=== PATIENT | female | born 1950 | race Caucasian/White ===

== ENCOUNTER 2016-11-25 01:55 | Inpatient (IN) | payer MEDICARE, MEDICAID ==
[2016-11-25] VITALS (12 sets, daily range): BP systolic 94–125; BP diastolic 51–67; PULSE 65–94; RESP 9–18; O2SAT 92–98
[~2016-11-25] VITALS: Ht 160 cm; Wt 81.8 kg
--- NOTE | 2016-11-25 03:00 | ED.REPORT ---
HPI-Abd Pain F 40 and Over Date of Service Nov 25, 2016 ED Provider: Dr. Booker Pt is a 66 year old female presenting to the ED complaining of lower right abd pain onset this morning, intensifying throughout the day. She denies hx of abd surgery. She reports that her last bowel movement was this morning. She denies other symptoms at this time. Nursing Notes Stated Complaint: RT SIDE PAIN Chief Complaint: Female Abdominal Pain Nursing Notes Reviewed: Yes Allergies: Coded Allergies: mercury (elemental) (Verified Allergy, Severe, removes skin, 11/25/16) General Time Seen by MD: 03:00 Chief Complaint Abdominal pain Hx Obtained From: Patient Arrived By: Walk-in Sudden in Onset?: Yes Onset Occurred: Yesterday Symptom Duration: Since onset Progression since Onset: Constant, Gradually worsening Location: : RLQ Quality: Painful Severity: Current: Moderate Severity: Maximum: Severe Recent Healthcare: No recent doctor visit, No recent hospitalization Similar Sx Previous: No Past Medical History Past Medical History Healthy Past Surgical History denies hx of abd surgery Denies: Appendectomy Smoking History Never Smoker Social History Alcohol Use: Denies alcohol use Ambulatory Status Independent Review of Systems Respiratory: Denies: Shortness of breath GI: Reports: Abdominal pain, Denies: Nausea, Vomiting Complete sys rev & neg: except as marked. Physical Exam Vital Signs Vital Signs (First) Date Time Temp Pulse Resp B/P Pulse Ox O2 Delivery O2 Flow Rate FiO2 11/25/16 02:01 37.4 66 16 106/66 97 Room Air Initial VS: Reviewed Head / Eyes: Atraumatic, Normocephalic, PERRL ENT: Mucous membranes moist, Conjunctiva normal, No scleral icterus Extremities: Vascular intact, Neuro intact, No swelling, No tenderness Skin: Warm, Dry, No cyanosis Neurologic: Alert, Oriented, Nonfocal Psychiatric: Mood/affect normal, Behavior normal, Normal thought content General/Constitutional: Awake, Alert, No acute distress, Well appearing, Well developed Respiratory / Chest: Breath sounds NL, Breath sounds = bilat, No respiratory distress, No rales, No rhonchi, No wheezing, No stridor Cardiovascular: Heart rate NL, Regular rhythm, Heart sounds NL, Peripheral circulation NL Abdomen: Atraumatic, No guarding, No rebound Rigid tender peritoneal. Hypoactive bowel sounds present. Interpretation & Diagnostics Lab Results Interpretation Result Diagram: 11/25/16 0300 11/25/16 0300 Test 11/25/16 03:00 11/25/16 03:39 11/25/16 04:10 White Blood Count 9.9th/mm3 (3.8-10.1) Red Blood Count 4.53mil/mm3 (3.90-5.20) Hemoglobin 13.1g/dL (12.0-15.6) Hematocrit 39.9% (35.0-46.0) Mean Corpuscular Volume 88.1fL (81-100) Mean Corpuscular Hemoglobin 28.9pg (27.0-35.0) Mean Corpuscular Hemoglobin Concent 32.8% (32.0-37.0) Red Cell Distribution Width 12.9% (12.3-15.4) Platelet Count 177bil/L (150-400) Neutrophils (%) (Auto) 77.2% (40-74) Lymphocytes (%) (Auto) 13.1% (14-46) Monocytes (%) (Auto) 9.0% (4-12) Eosinophils (%) (Auto) 0.3% (0-5) Basophils (%) (Auto) 0.2% (0-3) Prothrombin Time 10.0sec (8.1-12.5) Prothromb Time International Ratio 0.94ratio Sodium Level 137mEq/L (134-144) Potassium Level 4.1mEq/L (3.5-5.2) Chloride Level 98mEq/L (97-108) Carbon Dioxide Level 22mmol/L (18-29) Blood Urea Nitrogen 14mg/dL (8-27) Creatinine 0.64mg/dL (0.57-1.00) Estimat Glomerular Filtration Rate 133mL/min (>59) Glucose Level 112mg/dL (60-99) Calcium Level 8.7mg/dL (8.5-10.1) Magnesium Level 1.9mg/dL (1.6-2.6) Total Bilirubin 0.7mg/dL (0.0-1.2) Aspartate Amino Transf (AST/SGOT) 21U/L (0-50) Alanine Aminotransferase (ALT/SGPT) 15U/L (0-32) Alkaline Phosphatase 70U/L (25-165) Total Protein 6.7g/dL (6.4-8.4) Albumin 3.9g/dL (3.4-5.0) Lipase 10U/L (13-60) Lactic Acid Level 0.7mmol/L (0.4-2.0) Urine Color Dark yellow (YELLOW) Urine Appearance Clear (CLEAR,HAZY) Urine pH 6.5 (5.0-8.0) Urine Specific [place] 1.020 (1.003-1.035) Urine Protein Tracemg/dL (NEG,TRACE) Urine Glucose (UA) Negativemg/dL (NEGATIVE) Urine Ketones 40mg/dL (NEGATIVE) Urine Occult Blood Negative (NEGATIVE) Urine Nitrite Negative (NEGATIVE) Urine Bilirubin Negative (NEGATIVE) Urine Urobilinogen Normalmg/dL (NORMAL) Urine Leukocyte Esterase Trace (NEGATIVE) Urine RBC 0-2/hpf (0-2) Urine WBC 0-5/hpf (0-5) Urine Epithelial Cells Occasional/hpf (NONE-MOD) Urine Crystals None seen (NONE SEEN) Urine Bacteria None/hpf (NONE-FEW) Urine Hyaline Casts None/lpf (NONE) Urine Granular Casts None seen (NONE SEEN) Urine Waxy Casts None seen (NONE SEEN) Urine Red Blood Cell Casts None seen (NONE SEEN) Urine White Blood Cell Casts None seen (NONE SEEN) Urine Mucus Present (None Seen) Urine Trichomonas None seen (NONE SEEN) Urine Yeast None (NONE SEEN) Urine Culture Reflexed Indicated ECG Interpretation Time: 02:44 Interpreted by: ED physician Normal ECG Interpretation: Normal ECG w/ rate of... (65), Normal sinus rhythm CT Abd / Pelvis Interpretation CONCLUSION: Acute appendicitis. Wall thickening of terminal ileum is likely secondary to adjacent process. These findings were discussed with Dr. Booker at 11/25/2016 4:21:25 AM PDT. Study type: Abdominal CT IV contrast Interpretation / Wet Read by: Interpret - Radiologist Re-Eval/Medical Decision Med Decision/Clinical Course 66-year-old presents with abdominal pain and this settled in her right lower quadrant over the course of today. CT scan shows appendicitis. No evidence of perforation. Small appendicolith at the base. Admitted now to the surgical service for surgical management. Transported in stable condition. Zosyn, IV fluids, nothing by mouth status. Re-Evaluation/Progress : Time of Eval: 04:21 Patient Status: Condition improved Re-Evaluation/Progress Note: Discussed CT results and plan for admission. Pt understands and agrees. All pt questions addressed. Consultation : Referral / Consult Name: Chaka Bright MD Consulted With: Surgeon Call Returned at: 04:28 Powerhouse Laborer: Will see patient, Agrees with plan, Accepts admit Note: He will do surgery tomorrow. Counseled Regarding: Diagnosis, Lab results, Need for follow-up, When/why to return to ED Discharge & Departure Primary Impression: Appendicitis Appendicitis type: unspecified Qualified Code: K37 - Unspecified appendicitis Disposition: ADMITTED TO HOSPITAL Discharge Condition All VS Reviewed: Yes Condition: Improved Referrals: ROLY ROGERS MD (PCP) [place] Attestation Portions of this note were transcribed by Abril Mcguire. I, Dr. Booker personally performed the history, physical exam and medical decision-making; I reviewed and confirmed the accuracy of the information in the transcribed note. Signed by: Luis Aguilera, 11/25/2016 at 0429. copies to: ROLY ROGERS MD, Christopher W MD Nov 25, 2016 03:00 ABRIL MCGUIRE Nov 25, 2016 03:07
[2016-11-25] MEDS ORDERED: 0.9% Sodium Chloride 1,000 ML IV ONE (03:06)
[2016-11-25 03:07] LABS: BASOPHILS % (AUTO) 0.2 % (0-3); EOSINOPHILS % (AUTO) 0.3 % (0-5); Mean Corpuscular Hemoglobin 28.9 pg (27.0-35.0); Mean Corpuscular Volume 88.1 fL (81-100); NEUTROPHILS % (AUTO) 77.2 % (40-74); Platelet Count 177 bil/L (150-400)
[2016-11-25] MEDS ORDERED: HYDROmorphone 0.5 mg/0.5 mL iSecure Syringe IVPUSH PRN (03:10)
[2016-11-25] MEDS ORDERED: Pantoprazole 4 mg/mL 10 mL Inj IVPUSH ONE (03:10)
[2016-11-25] MEDS ORDERED: Ondansetron 2 mg/mL 2 mL Inj IVPUSH ONE (03:10)
[2016-11-25 03:25] LABS: INR 0.94 ratio
[2016-11-25 03:33] LABS: Magnesium 1.9 mg/dL (1.6-2.6)
[2016-11-25] MEDS ORDERED: Ondansetron 2 mg/mL 2 mL Inj IVPUSH PRN ×3 (04:30→17:15)
[2016-11-25] MEDS ORDERED: HYDROmorphone PCA 0.2 mg/mL 30 mL Inj IV PRN (04:30)
[2016-11-25] MEDS ORDERED: Piperacillin-Tazo 3.375 Gm Inj 3.375 GM in Dextrose 5% Minibag Plus 50 ML IV ONE (04:30)
[2016-11-25 04:31] LABS: APPEARANCE,URINE CLEAR (CLEAR,HAZY); COLOR,URINE DARK YELLOW (YELLOW); PH,URINE 6.5 (5.0-8.0)
[2016-11-25 04:32] LABS: OCCULT BLOOD,URINE NEGATIVE (NEGATIVE); UROBILINOGEN,URINE NORMAL (NORMAL)
[2016-11-25] MEDS: Lactated Ringer's 1,000 ML IV SCH ×2 (05:39→14:29)
--- NOTE | 2016-11-25 07:32 | NUR ---
Admit pt arrived to [facility] room 1023 at 0520. she was able to walk from the gurney to the bed without assistance. she is alert and oriented x3. a one time dose of zosyn was given. pt was started on a ROOM SERVICE WAITER dilaudid standard settings and taught how to use the ROOM SERVICE WAITER. she is resting comfortably at this time. admit complete.
--- NOTE | 2016-11-25 08:47 | DRSVH ---
PROCEDURE: CT ABDOMEN AND PELVIS WITH CONTRAST ([id number]) INDICATIONS: rlq pain TECHNIQUE: After the administration of intravenous contrast, 5 mm thick sections acquired from the diaphragm to the symphysis. 5 mm coronal and sagittal reformats were acquired. For radiation dose reduction, the following was used: automated exposure control, adjustment of mA and/or kV according to patient siz e. COMPARISON: None. FINDINGS: Image quality: Excellent. ABDOMEN: Lung bases: Lung bases are clear. Heart size is normal. Solid organs: Liver and spleen are normal in size and enhancement. Gallbladder is within normal marquez its. Biliary system is non dilated. Pancreas enhances normally. No adrenal nodules. Kidneys demon strate normal size and enhancement, without hydronephrosis. Peritoneum and bowel: An appendicolith is present. The appendix is distended and fluid-filled and de monstrates mild surrounding fat stranding. There is mild thickening of the adjacent terminal ileum. B owel loops demonstrate otherwise normal wall thickness and caliber. No pneumoperitoneum. Small amoun t of right paracolic free fluid. Nodes and vessels: No retroperitoneal or mesenteric adenopathy by size criteria. Aorta and inferior vena cava are normal in size. Miscellaneous: No ventral hernias. PELVIS: Genitourinary: Bladder wall thickness is normal. Miscellaneous: No inguinal hernias or adenopathy. Bones: No suspicious bony lesions. No vertebral body compression fractures. IMPRESSION: 1. Acute appendicitis. 2. Thickening of the terminal ileum, presumably reactive. 3. Small amount of free fluid in the right paracolic gutter. 4. Concordant with preliminary interpretation. Dictated by: Aime Whipple M.D. on 11/25/2016 at 8:43 Approved by: Aime Whipple M.D. on 11/25/2016 at 8:45
--- NOTE | 2016-11-25 12:59 | NUR ---
Student Nurse Note Pt experiencing general body pain, relieved by massage. Pt states she feels uneasy about walking around as she is weak and in pain. Has been using bedside commode with stand by assistance. Pt states she is very thirsty and wants water; informed that she is NPO for surgery but she will not become dehydrated as she's receiving IV fluids.
[2016-11-25] MEDS: Piperacillin-Tazo 3.375 Gm Inj 3.375 GM in Dextrose 5% Minibag Plus 50 ML IV SCH ×2 (13:24→16:30)
--- NOTE | 2016-11-25 14:40 | NUR ---
Social Work-initial assessment/readiness for discharge: Data:See initial assessment. Pt is a 66 y/o female who was admitted on 11/25/16 for acute appendicitis per H&P. Pt's insurance is [employer] and PCP is Jessi Pineda MD. EMR Reviewed. SW met with pt at bedside to discuss discharge planning, SW Role explained. Pt is alert and oriented x3. Pt resides at home with her SO in [place] where she remains independent with ADLs. Pt and SO are currently living in travel trailer while they build a house. Pt does not use any DME and drives. Pt has no HH or SNF history. Pt has no termite technician care or VA benefits. SW discussed DPOA/ advanced directive, pt states she has completed this, SW encourage a copy to be brought in. Pt has been up independent in her room. Pt to have surgery this afternoon. Pt's SO to provide transport home at discharge. SW provided plan and phone number on white board in room. No anticipated discharge needs. SW will continue to follow if needs arise. Assessment:Pt who is independent at baseline. Plan:Pt to discharge home when medically stable via POV. No anticipated discharge needs. SW will continue to follow if needs arise. HORTENSIA Mcnair Addendum: 11/25/16 at 1447 by LUNA SOLIS Amended: Links added.
--- NOTE | 2016-11-25 14:46 | HP ---
[address] [address] HISTORY AND PHYSICAL PATIENT: NOE AMADOR : 1950 MR#: [id number] ADMIT: 11/25/2016 JOB ID: [id number] CHIEF COMPLAINT: Abdominal pain. 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 She reports two days of abdominal pain. Forty-eight hours prior to presentation, she reported general malaise and a feeling of unwellness which progressed to diffuse abdominal pain later in the afternoon. She thought she was constipated and went to bed and when she woke up the next morning, 24 hours ago, her pain had localized to the right lower quadrant. It did not improve, and as the day went on, she thought that she could have appendicitis and, therefore, came to the emergency department. A CT scan was then performed which showed an appendicolith and a distended appendix which was fluid-filled with surrounding fat stranding and mild thickening of the adjacent terminal ileum, probably reactive. Her vital signs were normal and a white blood cell count was 9.9. PAST MEDICAL HISTORY: 1. Varicose veins. 2. Arthritis. PAST SURGICAL HISTORY: Varicose vein procedure at the age of 22. MEDICATIONS: She takes various oils for her arthritis. She denies use of fish oil or flaxseed oil. ALLERGIES: MERCURY. FAMILY HISTORY: Her grandmother had a metastatic cancer of unknown primary. 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 She lives with her male partner approximately 50 miles from the hospital. She does not smoke, she drinks 3-4 beers per week, and no recreational drug use. REVIEW OF SYSTEMS: Eleven point review of systems is positive for abdominal pain, and is otherwise negative. PHYSICAL EXAMINATION: Temperature 37.2, heart rate 76, blood pressure 94/60, respiratory rate of 16, saturation 98% on room air. General: Awake, alert, no acute distress. Head: Normocephalic. Neck: Supple. Cardiac: Regular rate and rhythm. No murmurs, rubs or gallops. Respiratory: Clear to auscultation bilaterally. Abdomen: Soft, flat, nondistended. She is very tender to mild palpation at McBurney point in the right lower quadrant. Mild tenderness in left lower quadrant, nontender in right upper quadrant and left upper quadrant. No rebound or guarding. Extremities: No gross abnormalities. Neurologic: No gross deficits. Psychiatric: Normal cognition and judgment. LABORATORIES: White blood cell count of 9.9, hematocrit of 39, platelets 177. Comprehensive metabolic panel is within normal limits. Lactate is 0.7. Labs are CT scan: Images are personally reviewed and show a distended fluid-filled appendix with surrounding fat stranding and appendicolith. This is consistent with acute appendicitis. Mild thickening of the terminal ileum, thought to be reactive. ASSESSMENT: A 66-year-old woman with acute appendicitis. PLAN: Laparoscopic appendectomy. We discussed the risks and benefits of surgery including infection, bleeding, injury to surrounding structures, and we also discussed the implications of perforation if it has occurred or is to occur. She understands all of this and elects to proceed. She will remain n.p.o. until the time of surgery. She received one dose of antibiotics in the emergency department, and this will be continued until the time of the operation. KAUSHAL
[2016-11-25] MEDS ORDERED: Rocuronium 10 mg/mL 5 mL Inj ONE (15:00)
[2016-11-25] MEDS ORDERED: fentaNYL-PF 50 mCg/mL 2 mL Inj ONE (15:00)
[2016-11-25] MEDS ORDERED: Phenylephrine/NS 100 mCg/mL 10 mL Syringe IVPUSH ONE (15:00)
[2016-11-25] MEDS ORDERED: Propofol 10,000 mCg/mL 20 mL Inj ONE (15:00)
[2016-11-25] MEDS ORDERED: Ondansetron 2 mg/mL 2 mL Inj ONE (15:00)
[2016-11-25] MEDS ORDERED: Succinylcholine Chloride 20 mg/mL 5 mL Inj ONE (15:00)
--- NOTE | 2016-11-25 15:31 | PCM.HPANE ---
Patient Data Surgeon Admitting Provider:Sophia Duffy MD Attending Provider:Sophia Duffy MD Primary Care Physician:Jessi Pineda MD Other Provider:Pedro Luis Reyes Anesthesia Reason for Visit Acute Appendicitis Ht/WT & BMI Height (Feet): 5 Height (Inches): 3.00 Weight (Kilograms): 81.82 Body Mass Index 0.00 Allergies Coded Allergies: mercury (elemental) (Verified Allergy, Severe, removes skin, 11/25/16) Past Anesthesia History Anesthesia History: Denies:: Abnormal Airway, Anesthesia Reactions, Difficult Intubation, Fam Anesthesia Reaction, Fam Malignant Hypertherm, Malignant Hyperthermia Diabetes History Hx Diabetes?: No (I don't think so) MRSA MRSA: No Medications No Active Prescriptions or Reported Meds History History of ENT Problems?: No HEENT History: Denies:: Abnormal Airway Cataracts Difficult Intubation Dysphagia Glaucoma Hearing Problem Sinus Problem TMJ Denture Type: None Teeth Condition: Within Normal Limits Hx of Heart Problems?: No Cardiovascular History: Denies:: Congestive Heart Failure Hypertension Hx of Respiratory Problem?: No Respiratory History: Denies:: Tuberculosis Hx Neurologic Problems?: No Hx of GI Problems?: Yes Other GI Pertinent History: had crohns disease, not active now Other History/Comment appendicitis Hx of Problems?: Yes Genitourinary History: Positive for:: Urinary Tract Infection (a decade ago) Female Hx: Denies:: Currently Endometriosis Pelvic Inflammatory Problems with Breasts? Hx Musculoskeletal Problems?: Yes Musculoskeletal History: Denies:: Back Injury Joint Replacement Musculoskeletal Trauma Hx of Psycho/Social Problems?: Yes Psycho Social History: Positive for:: Anxiety Denies:: Bipolar Disorder Hx Depression Suicide Attempt Hx Surgeries?: Yes (vein stripping, tonsilectomy) Other History: Positive for:: Hospitalization (vein stripping when she was 22) History Blood Transfusions: Positive for:: Accept Blood Products? Denies:: Blood Transfuse Reaction Blood Transfusions Hx Diabetes: No (I don't think so) Hx Alcohol Use: Yes (1-5 beer or wine a week)Hx Substance Use: No Smoking Status: Never Smoker Have You Smoked inLast 12 mo: No Stop/Bang Treated for Sleep Apnea?: Yes Do You Have a CPAP Machine?: No S-Snoring: Do You Snore Loudly: No T-Tired: feel tired, fatigued: No O-Obsered: Observed not breath: Yes P-Blood Pressure: treated: No B- Body Mass Index > 35 kg/m2: No A- Age over 50: Yes N- Neck Large Circumference: No G- Gender Male: No SHARLENE Total Score: 1 Risk Assessment Category Category 1A: Patient has history of documented sleep apnea, and HAS NOT received any narcotic, sedative or anesthesia administration during this stay. Category 1B: Patient has history of documented sleep apnea, and HAS received any narcotic , sedative or anesthesia administration during this stay Category 2: Patient has SUSPECTED Obstructive Sleep Apnea, and HAS received any narcotic , sedative or anesthesia administration during this stay. Category 3: Patient has SUSPECTED Obstructive Sleep Apnea and HAS NOT received narcotic, sedative or anesthesia administration during this stay. Category 4: Outpatient in Procedural Areas with known sleep apnea or who screen positive for High Risk via the STOP/BANG questionnaire. Exam Exam Vital Signs Vital Signs Date Time Temp Pulse Resp B/P Pulse Ox O2 Delivery O2 Flow Rate FiO2 11/25/16 13:27 37.1 65 17 101/66 96 Room Air General Appearance: Alert, Oriented X3, Cooperative HEENT/AIRWAY: MP 2 Lungs: Clear to Auscultation, Normal Air Movement Heart: Exam Unremarkable Meds/Labs/Diagnostics Admission Meds Current Medications Sodium Chloride (Normal Saline) 1,000 ml @ 0 mls/hr Q0M ONCE IV Last administered on 11/25/16 03:43; Start 11/25/16 at 03:06; Stop 11/25/16 at 03:10 ; Status DC Pantoprazole (Protonix Inj) 40 mg ONCE ONCE IVPUSH Last administered on 03:43; Start 11/25/16 at 03:10; Stop 11/25/16 at 03:11; Status DC Ondansetron HCl 8 mg 8 mg ONCE ONCE IVPUSH Last administered on 11/25/16 03: 43; Start 11/25/16 at 03:10; Stop 11/25/16 at 03:11; Status DC Piperacillin Sod/ Tazobactam Sod 3.375 gm/Dextrose/ Water 50 ml @ 100 mls/hr ONCE ONCE IV Last administered on 11/25/16 06:01; Start 11/25/16 at 04:30; Stop 11/25/16 at 04:59; Status DC Lactated Ringer's 1,000 ml @ 100 mls/hr Q10H IV Last administered on 05:39; Start 11/25/16 at 04:29 Piperacillin Sod/ Tazobactam Sod/ Dextrose/Water (Zosyn 3.375 Gm Inj/D5W Minibag Plus) 50 ml @ 12.5 mls/hr Q8 IV Last administered on 11/25/16 13:24; Start 11/25/16 at 12:12 Labs Test 11/25/16 03:00 11/25/16 03:39 11/25/16 04:10 White Blood Count 9.9th/mm3 (3.8-10.1) Red Blood Count 4.53mil/mm3 (3.90-5.20) Hemoglobin 13.1g/dL (12.0-15.6) Hematocrit 39.9% (35.0-46.0) Mean Corpuscular Volume 88.1fL (81-100) Mean Corpuscular Hemoglobin 28.9pg (27.0-35.0) Mean Corpuscular Hemoglobin Concent 32.8% (32.0-37.0) Red Cell Distribution Width 12.9% (12.3-15.4) Platelet Count 177bil/L (150-400) Neutrophils (%) (Auto) 77.2% (40-74) Lymphocytes (%) (Auto) 13.1% (14-46) Monocytes (%) (Auto) 9.0% (4-12) Eosinophils (%) (Auto) 0.3% (0-5) Basophils (%) (Auto) 0.2% (0-3) Prothrombin Time 10.0sec (8.1-12.5) Prothromb Time International Ratio 0.94ratio Sodium Level 137mEq/L (134-144) Potassium Level 4.1mEq/L (3.5-5.2) Chloride Level 98mEq/L (97-108) Carbon Dioxide Level 22mmol/L (18-29) Blood Urea Nitrogen 14mg/dL (8-27) Creatinine 0.64mg/dL (0.57-1.00) Estimat Glomerular Filtration Rate 133mL/min (>59) Glucose Level 112mg/dL (60-99) Calcium Level 8.7mg/dL (8.5-10.1) Magnesium Level 1.9mg/dL (1.6-2.6) Total Bilirubin 0.7mg/dL (0.0-1.2) Aspartate Amino Transf (AST/SGOT) 21U/L (0-50) Alanine Aminotransferase (ALT/SGPT) 15U/L (0-32) Alkaline Phosphatase 70U/L (25-165) Total Protein 6.7g/dL (6.4-8.4) Albumin 3.9g/dL (3.4-5.0) Lipase 10U/L (13-60) Lactic Acid Level 0.7mmol/L (0.4-2.0) Urine Color Dark yellow (YELLOW) Urine Appearance Clear (CLEAR,HAZY) Urine pH 6.5 (5.0-8.0) Urine Specific [place] 1.020 (1.003-1.035) Urine Protein Tracemg/dL (NEG,TRACE) Urine Glucose (UA) Negativemg/dL (NEGATIVE) Urine Ketones 40mg/dL (NEGATIVE) Urine Occult Blood Negative (NEGATIVE) Urine Nitrite Negative (NEGATIVE) Urine Bilirubin Negative (NEGATIVE) Urine Urobilinogen Normalmg/dL (NORMAL) Urine Leukocyte Esterase Trace (NEGATIVE) Urine RBC 0-2/hpf (0-2) Urine WBC 0-5/hpf (0-5) Urine Epithelial Cells Occasional/hpf (NONE-MOD) Urine Crystals None seen (NONE SEEN) Urine Bacteria None/hpf (NONE-FEW) Urine Hyaline Casts None/lpf (NONE) Urine Granular Casts None seen (NONE SEEN) Urine Waxy Casts None seen (NONE SEEN) Urine Red Blood Cell Casts None seen (NONE SEEN) Urine White Blood Cell Casts None seen (NONE SEEN) Urine Mucus Present (None Seen) Urine Trichomonas None seen (NONE SEEN) Urine Yeast None (NONE SEEN) Urine Culture Reflexed Indicated Plan Impression Patient chart reviewed, patient interviewed and anesthestic plan with risks, benefits, and alternatives discussed, and informed consent obtained. ASA Physical Status: ASA2 Plus Emergency Anesthetic Plan: GA Bene/Risks/Altern/Consents: Yes HP Complete Prior to Induction: Yes Ulices Quintana MD Nov 25, 2016 15:31
[2016-11-25] MEDS ORDERED: Lactated Ringer's 1,000 ML IV ONE ×2 (15:42→16:15)
[2016-11-25] MEDS ORDERED: Bupivacaine-MPF 0.25%/EPI 30 mL Inj INJ ONE (16:20)
--- NOTE | 2016-11-25 17:07 | PCM.ANEP1 ---
Post Anesthesia Phase 1 PACU Phase 1 Assessment Vital Signs Vital Signs Date Time Temp Pulse Resp B/P Pulse Ox O2 Delivery O2 Flow Rate FiO2 11/25/16 17:03 37.2 89 15 119/64 92 Room Air 11/25/16 13:27 37.1 65 17 101/66 96 Room Air Anesthetic Administered: GA Level of Alertness: Sleeping, hard to arouse LINCOLN's with Equal Strength: Yes Pain: No Pain Scale Score: 0 Nausea or Vomiting: No Cardiovascular Function and Hy: Yes Oxygen Delivery: Nasal Cannula Lungs: Clear to Auscultation, Normal Air Movement Dermatome Level: Full Sensation Complications: No Ulices Quintana MD Nov 25, 2016 17:07
--- NOTE | 2016-11-25 17:08 | PCM.SURGOP ---
Surgical Operative Report Date of Service: Nov 25, 2016 Pre Operative Diagnosis Acute appendicitis Post Operative Diagnosis Acute perforated appendicitis with localized abscess Procedure: Laparoscopic appendectomy Surgeon and Brake Press Operator: Surgeon: aSy Otero MD Assistants: Ruddy Jacques PA-C Indication for Procedure 66-year-old woman who presented to the emergency department with 48 hours of abdominal pain localizing to the right lower quadrant and malaise. She reportedly has a personal history of Crohn's disease, treated with diet alone. She had a normal white blood cell count. She had a CT scan of the abdomen and pelvis which showed thickening of the appendix with an appendicolith and periappendiceal fat stranding, a small amount of free fluid, and thickening of the terminal ileum, believed to be reactive. After discussion of risks and benefits, she agreed to proceed with laparoscopic appendectomy. Findings: The appendix was perforated with a small abscess between the mesoappendix and the terminal ileum. The base of the appendix was necrotic, so the staple line on the cecum was reinforced with a single imbricating 3-0 silk suture. Procedure Details After smooth induction of general anesthesia, the patient was placed in the supine position with the left arm tucked. The abdomen was prepped and draped in wide sterile fashion. A procedural pause was performed according to the SCOAP checklist, and all were found to be in agreement. A curvilinear infraumbilical incision was made. Dissection was carried down with electrocautery until the midline fascia was incised vertically and the peritoneal cavity was entered without difficulty. Pneumoperitoneum was established. Two additional ports were placed under visualization. A 5 mm port was placed in the midline above the symphysis pubis, and a 12 mm port in the left lower quadrant, lateral to the inferior epigastric vessels. The patient was placed head down with the right side up. The small bowel was retracted. The greater omentum had some inflammatory adherence to the appendix , and those adhesions were bluntly mobilized. The terminal ileum had no evidence of creeping fat or ileitis. There was a small amount of clear free fluid in the right lower quadrant. After blunt mobilization of the appendix off the terminal ileum, there was a small abscess cavity, with a gangrenous portion of the base of the appendix and perforation. A window was created at the base of the appendix in the mesoappendix. The appendiceal stump was then divided on the cecum using an Endo TOM stapler with a 45 mm blue load. The cecal staple line was slightly tenuous, as it was immediately adjacent to the necrotic appendiceal base. The mesoappendix was divided with a vascular load. The appendix was placed into an Endo Catch bag. Because of the slightly tenuous cecal staple line, the staple line was oversewn with a 3-0 silk Lembert suture. The right lower quadrant was irrigated and suctioned. The appendiceal stump was intact and the mesoappendix was hemostatic. The appendix was removed and passed off the field for permanent pathology. The 12 mm port was removed. The fascia of the 12 mm port site was closed using an inlet closure device with an 0 Vicryl suture. The remaining ports were removed under visualization and pneumoperitoneum was released. The fascia of the umbilical port site was closed with a simple 0 Vicryl suture. The skin incisions were closed using running 4-0 Monocryl subcutaneous stitches. Steri-Strips and sterile dressings were applied. At the end of the case all needle and sponge counts were correct 2. The patient was awakened from anesthesia without difficulty, and taken to the recovery room in satisfactory condition, having tolerated the procedure well. Complications There were no periprocedural complications identified. Surgical Specimen Removed: Yes Specimen sent to Pathology: Yes Surgical Specimen description: Appendix Anesthetic Plan: GA Grafts, Implants: None Output, Estimated Blood Loss: 30 Blood Administration during richardson: No Drains: None Catheters: None copies to: ROLY ROGERS MD, Joshua D MD Nov 25, 2016 17:08
[2016-11-25] MEDS ORDERED: Lactated Ringer's 1,000 ML IV SCH (17:13)
[2016-11-25] MEDS ORDERED: Lactated Ringer's 500 ML IV PRN (17:13)
[2016-11-25] MEDS ORDERED: MetoCLOpramide 5 mg/mL 2 mL Inj IVPUSH PRN (17:15)
[2016-11-25] MEDS ORDERED: Phenylephrine 10,000 mCg/mL Inj IVPUSH PRN (17:15)
[2016-11-25] MEDS ORDERED: EPHEDrine Sulfate 50 mg/mL Inj IVPUSH PRN (17:15)
[2016-11-25] MEDS ORDERED: Dexamethasone 4 mg/mL Inj IVPUSH PRN (17:15)
[2016-11-25] MEDS: HYDROmorphone 1 mg/mL Inj IVPUSH PRN ×4 (17:21→17:56)
[2016-11-25] MEDS: fentaNYL-PF 50 mCg/mL 2 mL Inj IVPUSH PRN ×4 (17:21→17:56)
--- NOTE | 2016-11-25 18:20 | NUR ---
received from PACU After returning to room pt became nauseated, had projectile green emesis. 8mg Zofran given IV.
--- NOTE | 2016-11-25 20:07 | NUR ---
Nausea/vomiting P: Patient experiencing nausea and vomiting post surgery. I: Primary RN gave 8mg Zofran via IV E: 30 min after antinausea meds, pt still experiencing nausea and vomiting. Will continue to monitor and encourage ice chips as she is not currently receiving IV fluids.
[2016-11-25] MEDS ORDERED: 0.9% Sodium Chloride 100 ML ONE (21:23)
[2016-11-25] MEDS: Acetaminophen IV 1,000 MG in IV Premix 1 EACH IV PRN (21:55)
[2016-11-26 00:17] VITALS: BP 104/59; PULSE 85; RESP 16; O2SAT 97
[2016-11-26] MEDS: Lactated Ringer's 1,000 ML IV SCH ×3 (00:29→20:29)
[2016-11-26] MEDS: Piperacillin-Tazo 3.375 Gm Inj 3.375 GM in Dextrose 5% Minibag Plus 50 ML IV SCH ×3 (00:41→17:15)
--- NOTE | 2016-11-26 02:37 | NUR ---
Pain Patient states pain at a 7/10 on pain scale. Patient refuses to use HERITAGE [employer]SULTANT and any opioids IVP. Patient states that she will wait for scheduled Acetaminophen. Patient sleepy during initial assessment. VSS. Patient encouraged to deep breathe and use IS. Call light. Care continues.
[2016-11-26 04:09] VITALS: BP 110/62; PULSE 84; RESP 16; O2SAT 98
[2016-11-26] MEDS: Acetaminophen IV 1,000 MG in IV Premix 1 EACH IV PRN ×2 (04:11→04:41)
--- NOTE | 2016-11-26 07:06 | PROG NOTE ---
[address] [address] PROGRESS NOTE PATIENT: NOE AMADOR : 1950 MR#: [id number] ADMIT: 11/25/2016 JOB ID: [id number] DATE: 11/26/2016 SUBJECTIVE: The patient is seen in followup. Today, she is complaining of quite a bit of pain in the right lower quadrant. She states that it hurts to move. She is not having nausea this morning. She has been hesitant so far to take narcotics and has only taken IV Tylenol since surgery. OBJECTIVE: Temperature 36.8, pulse 84, blood pressure 110/62, saturation 98% on 2.5 L nasal cannula. General: She is resting in bed, in no acute distress. Chest is clear. Heart: Regular rate and rhythm. No murmurs. Abdomen is soft, tender in the right lower quadrant. Incisions are clean with no erythema. Labs have not been drawn this morning. ASSESSMENT AND PLAN: A 66-year-old woman with perforated appendicitis with walled-off abscess between the appendix and terminal ileum, postoperative day one, status post laparoscopic appendectomy. IV antibiotics will be continued. She will need to stay in the hospital until her white blood cell count is normal, she is free of fevers, she is able to ambulate and urinate, and able to tolerate a diet. I expect that she will be here until tomorrow at least. She was encouraged to use oral narcotics as necessary so that she is comfortable enough to get up and ambulate in the halls.
[2016-11-26 07:50] VITALS: RESP 16; O2SAT 98
[2016-11-26 08:34] LABS: BASOPHILS % (AUTO) 0.1 % (0-3); EOSINOPHILS % (AUTO) 0.1 % (0-5); MONOCYTES % (AUTO) 7.8 % (4-12); Mean Corpuscular Hemoglobin 29.4 pg (27.0-35.0); Mean Corpuscular Volume 90.4 fL (81-100); NEUTROPHILS % (AUTO) 76.4 % (40-74); Platelet Count 148 bil/L (150-400)
[2016-11-26] MEDS ORDERED: 0.9% Sodium Chloride 250 ML ONE (09:01)
[2016-11-26 09:37] VITALS: BP 91/56; PULSE 69; RESP 16; O2SAT 97
--- NOTE | 2016-11-26 10:37 | NUR ---
Case Management- IMM explained and signed by patient. Copy given to patient and orginal placed in chart. Mckenzie ALVARADO/ ASHLEY
--- NOTE | 2016-11-26 11:23 | NUR ---
Social Work-readiness for discharge: Data:EMR Reviewed. Pt is on day 1 of hospitalization for acute appendicitis per H&P. Pt is not medically stable anticipate 1-2 more days. Pt resides at home with her SO in [place]. Pt had surgery yesterday and will to stay in the hospital for a few days of IV abx. Anticipate oral abx at discharge. Per RN notes, pt has been up independent in her room. Pt's family to provide transport home. No anticipated discharge needs. SW will continue to follow if needs arise. Assessment:Pt who is independent at baseline. Plan:Pt to discharge home when medically stable via POV. No anticipated discharge needs. SW will continue to follow if needs arise. HORTENSIA Mcnair
[2016-11-26 14:11] VITALS: BP 99/63; PULSE 65; RESP 17; O2SAT 94
--- NOTE | 2016-11-26 18:03 | NUR ---
Pain Activity Pt encouraged to ambulate hallways this shift. Pt states that her pain is not well controlled to ambulate, agrees to try oxycodone. Pt tolerated oxycodone well w/o side effects and ambulated hallway x1 this shift, but has increased her activity in her room as far as going to the BR and sitting up in a chair. Bed down and locked, call light w/in reach
[2016-11-26 19:40] VITALS: BP 95/58; PULSE 87; RESP 18; O2SAT 95
[2016-11-27] MEDS: Piperacillin-Tazo 3.375 Gm Inj 3.375 GM in Dextrose 5% Minibag Plus 50 ML IV SCH (00:31)
--- NOTE | 2016-11-27 01:49 | NUR ---
Pain/ Activity Patients pain has been managed with 5mg Oxycodone PO every 4 hours this evening. New IV has been place in right hand, and left AC IV has been D/C'd due to pain, and redness. Has ambulated the hallway this evening with aid without any troubles. Will continue to monitor, and continue Q1 hour checks.
[2016-11-27 04:51] VITALS: BP 113/69; PULSE 84; RESP 18; O2SAT 97
[2016-11-27] MEDS: Lactated Ringer's 1,000 ML IV SCH ×2 (05:53→16:29)
[2016-11-27 06:12] LABS: BASOPHILS % (AUTO) 0.2 % (0-3); EOSINOPHILS % (AUTO) 0.3 % (0-5); MONOCYTES % (AUTO) 9.6 % (4-12); Mean Corpuscular Hemoglobin 28.9 pg (27.0-35.0); Mean Corpuscular Volume 91.3 fL (81-100); NEUTROPHILS % (AUTO) 71.1 % (40-74); Platelet Count 146 bil/L (150-400)
[2016-11-27] MEDS ORDERED: Sodium Biphos-Phos 133 mL Enema RECTAL PRN (07:50)
--- NOTE | 2016-11-27 08:20 | PROG NOTE ---
[address] [address] PROGRESS NOTE PATIENT: NOE AMADOR : 1950 MR#: [id number] ADMIT: 11/25/2016 JOB ID: [id number] DATE: 11/27/2016 SUBJECTIVE: The patient is seen in followup. She had some emesis overnight, and is not feeling that well this morning. She has been on regular oxycodone every 4 hours for the pain. Her pain is mostly in the right lower quadrant. She is passing flatus but has not had a bowel movement. OBJECTIVE: Temperature 36.7, pulse 84, blood pressure 113/69, saturation 97% on room air. General: She is resting in bed in no acute distress. Chest is clear. Heart: Regular rate and rhythm. No murmurs. Abdomen is soft, tender in the right lower quadrant. Her incisions are clean with no erythema. Bowel tones are present. LABORATORIES: White blood cell count is 6.3, hematocrit 36.7, platelets 146. Differential is normal. Creatinine 0.65, glucose 111. ASSESSMENT AND PLAN: A 66-year-old woman, postoperative day two, status post laparoscopic appendectomy for perforated appendicitis with a small abscess between the appendix and terminal ileum. There was a lot of thickening of the terminal ileum on CT scan, and possibility of Crohn disease persists in the differential diagnosis. Because of the possibility of Crohn's, I think a better antibiotic choice would be Flagyl, so I am going to switch her from Unasyn to Flagyl plus levofloxacin. She is requesting an enema this morning, which I do not particularly think will work because of terminal ileum inflammation, but will go ahead and order one if she wants to try that. It looks like she will need to stay in the hospital at least one more day for recovery. Ibuprofen, Tylenol, and MiraLAX were ordered as well.
[2016-11-27] MEDS ORDERED: Polyethylene Glycol (PEG) 17 Gm Powder PO SCH (08:30)
[2016-11-27] MEDS ORDERED: levoFLOXacin Inj 750 MG in IV Premix 1 EACH IV SCH (08:30)
[2016-11-27] MEDS ORDERED: metroNIDAZOLE Inj 500 MG in IV Premix 1 EACH IV SCH (08:30)
[2016-11-27] MEDS ORDERED: 0.9% Sodium Chloride 250 ML ONE (10:22)
[2016-11-27 12:25] VITALS: BP 110/69; PULSE 67; RESP 18; O2SAT 96
--- NOTE | 2016-11-27 13:20 | PATH ---
SURGICAL PATHOLOGY Attending Physician:Emiliano Rowland CASE STATUS: Signed Out PATIENT NAME: NOE AMADOR PID: [id number] : 1950 DATE COLLECTED:11/25/2016 00:00 SPECIMEN: Appendix CLINICAL HISTORY: APPENDICITIS 1). APPENDIX FINAL DIAGNOSIS: 1.APPENDIX: ACUTE APPENDICITIS WITH PERFORATION. Negative for granulomas. No evidence of malignancy. ICD10 code K35.2 GROSS DESCRIPTION: The specimen is received in formalin, labeled with the patient's name, and consists of an intact appendix (length-3.8 cm, diameter-0.7 cm) with attached mesoappendix (up to 1.2 cm in depth). The resection margin is received stapled. The serosa is arana-pink smooth and shiny and partially covered in arana flaky friable exudate. The lumen contains clear colorless fluid. The wall is up to 0.2 cm thick. Multiple possible rupture sites are identified within the tip. No nodules, masses or lesions are identified. Ink code: black-proximal. 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 11/26/16 MICRO DESCRIPTION: See diagnosis. ICD-9 CODES: CPT CODES: 1: 45768 Electronically Signed Out Krista Perez MD [facility] Pathology [facility] [address], [place] [address] Technical component performed at [facility], [facility] [address], [place], [address]
--- NOTE | 2016-11-27 17:17 | PCM.DISURG ---
Surgical Discharge Instruction Date of Service Nov 27, 2016 Dates of Hospitalization Date of Hospital Admission Nov 25, 2016 at 04:57 Providers Admitting Physician: Say Otero MD Primary Care Physician: Jessi Pineda MD Attending Physician: Say Otero MD Discharge Diagnosis Discharge Diagnosis acute perforated appendicitis Post Operative diagnosis Acute perforated appendicitis with localized abscess Diet Discharge Diet: No restrictions Activity Discharge Activity-General: Activity as pain allows, No lifting >15 pounds for 2 weeks Dressing and Incisional Care Dressing Care: Allow Steri Stripes to fall off Hygiene: May shower Follow Up Plan Follow Up Plan with Dr. Otero in surgery clinic in one week Call your provider for: Fever (over 101.5F), Vomiting, Discharge @ incision, pus discharge Say Otero MD Nov 27, 2016 17:17
[2016-11-27] MEDS ORDERED: ONDA4TAB12 PO (17:19)
[2016-11-27] MEDS ORDERED: OXYC5TAB72 PO (17:19)
[2016-11-27] MEDS ORDERED: LEVO750T39 PO (17:19)
[2016-11-27] MEDS ORDERED: METR500T19 PO (17:19)
--- NOTE | 2016-11-27 21:19 | NUR ---
Discharge Patient left with spouse around 1920 to home. Day shift nurse completed discharge teaching, and addressed all questions prior to shift change; discharge papers were signed. Spouse went to fill prescriptions prior to picking up patient. IV had been DC'd on day shift, and pain medication was given. All belongings left with patient, and she denied any further questions.
--- NOTE | 2016-11-28 14:11 | PCM.DC.SUR ---
Discharge Summary Date of Service: Date of Hospital Admission: Nov 25, 2016 at 04:57 Date of Operation(s): 11/25/2016 Date of Discharge: 11/27/2016 Diagnosis at Time of Discharge Primary diagnosis: Acute perforated appendicitis with localized abscess Other chronic conditions: 1. Varicose veins 2. Arthritis Problems: Operation Laparoscopic appendectomy Brief History and Physical: The patient is a 66-year-old woman who presented to the emergency department with 48 hours of abdominal pain localizing to the right lower quadrant and malaise. She reportedly has a personal history of Crohn's disease, treated with diet alone. She had a normal white blood cell count. She had a CT scan of the abdomen and pelvis which demonstrated thickening of the appendix with an appendicolith and periappendiceal fat stranding, a small amount of free fluid, and thickening of the terminal ileum, believed to be reactive. Consultants: None Hospital Course: The patient was admitted and underwent the above-mentioned operation without complication. The following morning the patient had complaints of pain and malaise, hospitalization with IV antibiotics were continued. On the patient's second postsurgical day antibiotics were adjusted as the patient's condition did not appear to be improving. By the afternoon of the patient second postsurgical day she had improved significantly and requested discharge from the hospital. Pathology: Pending Disposition: The patient was discharged to home on her second postsurgical day on oral antibiotics. At the time of discharge she was beginning to tolerate an oral diet, pain was well controlled on oral analgesic, she was afebrile, she had no leukocytosis, and she was ambulating without assistance. Follow-up Plan: She will follow-up in the office with Dr. Otero in 1 week. Levofloxacin (Levofloxacin) 750 Mg Tablet 750 MG PO DAILY Metronidazole (Metronidazole) 500 Mg Tablet 500 MG PO TID Ondansetron ODT (Ondansetron ODT) 4 Mg Tab.rapdis 4 MG PO Q6H PRN PRN For Nausea oxyCODONE (oxyCODONE) 5 Mg Tablet 5 MG PO Q4H PRN PRN For Moderate Pain copies to: ROLY ROGERS MD, Fred H PA-C Nov 28, 2016 14:11
== END 2016-11-27 19:20 | disposition home or self-care (01) | DRG 339 ==
LOC: SED 01:55 → OBSVTOIN 04:57 → OSC 04:57
PROVIDERS: ADMIT Student in an Organized Health Care Education/Training Program; ATTEND Student in an Organized Health Care Education/Training Program
PROC: 0DTJ4ZZ Resection of Appendix, Percutaneous Endoscopic Approach (ICD-10-PCS; principal; 2016-11-25 16:45)
DX: K35.3 Acute appendicitis with localized peritonitis (principal); K50.90 Crohn's disease, unspecified, without complications; M19.90 Unspecified osteoarthritis, unspecified site

== ENCOUNTER 2016-12-14 21:06 | Emergency (ER) | payer MEDICARE, MEDICAID ==
[~2016-12-14] VITALS: Ht 160 cm; Wt 78.6 kg
[~2016-12-14 21:06] MED LIST: LEVO750T39 PO; METR500T19 PO; ONDA4TAB12 PO; OXYC5TAB72 PO
[2016-12-14 21:14] VITALS: BP 106/66; PULSE 82; RESP 16; O2SAT 96
--- NOTE | 2016-12-14 21:45 | ED.REPORT ---
HPI-Abd Pain F 40 and Over Date of Service December 14, 2016 ED Provider: Federico Booker MD Patient is a 66 year old female who had surgery on 11/25/16 for perforated appendicitis with abscess who presents to the ED complaining of upper quadrant abdominal pain. Associated symptoms include chills and pain that radiates up into her chest and head. She denies hematochezia, black/tarry stool, fever or irregular bowel movements. The patient reports that this is the same pain that she has had since 11/22/16 and it feels like heartburn. She states that the pain increases after eating. Her left side is still sore from the surgery but is progressively improving. Nursing Notes Stated Complaint: UPPER GI PAIN Chief Complaint: Female Abdominal Pain Nursing Notes Reviewed: Yes Allergies: Coded Allergies: mercury (elemental) (Verified Allergy, Severe, removes skin, 11/25/16) Scheduled Famotidine (Pepcid) 20 Mg Tablet 20 MG PO BID Levofloxacin (Levofloxacin) 750 Mg Tablet 750 MG PO DAILY Metronidazole (Metronidazole) 500 Mg Tablet 500 MG PO TID Scheduled PRN Ondansetron ODT (Ondansetron ODT) 4 Mg Tab.rapdis 4 MG PO Q6H PRN PRN For Nausea oxyCODONE (oxyCODONE) 5 Mg Tablet 5 MG PO Q4H PRN PRN For Moderate Pain General Time Seen by MD: 21:45 Chief Complaint Abdominal pain Hx Obtained From: Patient Arrived By: Walk-in Sudden in Onset?: No Onset Occurred: More than a week ago... (4 weeks) Symptom Duration: Since onset Progression since Onset: Unchanged Location: : Abdomen upper Recent Healthcare: Recent doctor visit, Recent hospitalization Similar Sx Previous: Yes Past Medical History Past Medical History Healthy Past Surgical History perforated appendicitis with abscess Smoking History Never Smoker Social History Alcohol Use: Denies alcohol use Other Social History: Good social support Ambulatory Status Independent Review of Systems Constitutional: Reports: Chills, Denies: Fever Respiratory: Denies: Non-productive cough, Shortness of breath Cardiovascular: Reports: Chest pain GI: Reports: Abdominal pain, Denies: Bloody/tarry stool, Constipation, Diarrhea, Hematochezia Complete sys rev & neg: except as marked. Physical Exam Vital Signs Vital Signs (First) Date Time Temp Pulse Resp B/P Pulse Ox O2 Delivery O2 Flow Rate FiO2 12/14/16 21:14 36.6 82 16 106/66 96 12/15/16 00:30 Room Air Initial VS: Reviewed General/Constitutional: Awake, Alert, No acute distress Respiratory / Chest: Atraumatic, Breath sounds NL, Breath sounds = bilat, No respiratory distress Cardiovascular: Heart rate NL, Regular rhythm, Heart sounds NL Abdomen: Atraumatic, Soft Tenderness/Guarding/Rebound: Positive: Tender epigastric (mild) wounds from surgery are clean Back: Atraumatic, Full range of motion Head / Eyes: Atraumatic, Normocephalic, PERRL, EOMI Skin: Atraumatic, Color NL, No rash, Warm, Dry Neurologic: Oriented X3, Speech NL, No motor deficits, No sensory deficits Psychiatric: Affect NL, Mood NL Interpretation & Diagnostics Lab Results Interpretation Result Diagram: 12/14/16220612/14/162206 Test 12/14/16 22:07 12/14/16 23:00 White Blood Count 4.7th/mm3 (3.8-10.1) Red Blood Count 4.28mil/mm3 (3.90-5.20) Hemoglobin 12.4g/dL (12.0-15.6) Hematocrit 38.4% (35.0-46.0) Mean Corpuscular Volume 89.7fL (81-100) Mean Corpuscular Hemoglobin 29.0pg (27.0-35.0) Mean Corpuscular Hemoglobin Concent 32.3% (32.0-37.0) Red Cell Distribution Width 13.2% (12.3-15.4) Platelet Count 217bil/L (150-400) Neutrophils (%) (Auto) 40.3% (40-74) Lymphocytes (%) (Auto) 45.3% (14-46) Monocytes (%) (Auto) 10.3% (4-12) Eosinophils (%) (Auto) 3.0% (0-5) Basophils (%) (Auto) 1.1% (0-3) Sodium Level 141mEq/L (134-144) Potassium Level 3.8mEq/L (3.5-5.2) Chloride Level 103mEq/L (97-108) Carbon Dioxide Level 23mmol/L (18-29) Blood Urea Nitrogen 17mg/dL (8-27) Creatinine 0.58mg/dL (0.57-1.00) Estimat Glomerular Filtration Rate 149mL/min (>59) Glucose Level 108mg/dL (60-99) Calcium Level 8.7mg/dL (8.5-10.1) Magnesium Level 2.0mg/dL (1.6-2.6) Total Bilirubin 0.2mg/dL (0.0-1.2) Aspartate Amino Transf (AST/SGOT) 19U/L (0-50) Alanine Aminotransferase (ALT/SGPT) 14U/L (0-32) Alkaline Phosphatase 74U/L (25-165) Total Protein 6.5g/dL (6.4-8.4) Albumin 3.6g/dL (3.4-5.0) Lipase 19U/L (13-60) Hold Bermeo Top Tube Received (Received) Hold Urine Received (Received) Re-Eval/Medical Decision Med Decision/Clinical Course 66-year-old with self-reported history of Crohn's disease, diagnosed "clinically" in the 70s without any biopsy confirmation. Her problems at that time so like ureteral bowel, and she has never been medicated for the problem in his never had a recurrence. Its fairly clear she never had Crohn's disease in the first place. She presents now with an epigastric pain that antecedent her presentation with appendicitis, and continues after. She has fairly clearcut heartburn,'s supine symptoms, and epigastric pain consistent with esophageal reflux and spasm. LFTs are unremarkable. She is improved after GI cocktail here. No indication of biliary disease or pancreatitis. No suspicion of Crohn's disease based on her actual history. She is begun with high-dose Pepcid, which she prefers to omeprazole, due to reported renal effects of proton pump inhibitors. She was placed on 20 mg twice a day for eight weeks. Follow up with PCP in [place]. May need upper endoscopy to exclude parrots and precancerous lesions. Discharge in stable condition. Re-Evaluation/Progress : Time of Eval: 23:59 Re-Evaluation/Progress Note: Discussed lab results and plan for discharge. The patient understands and agrees to the plan for discharge. All questions were addressed, Counseled Regarding: Diagnosis, Lab results, Need for follow-up, When/why to return to ED Discharge & Departure Primary Impression: Esophagitis Disposition: Home Discharge Condition All VS Reviewed: Yes Condition: Stable Referrals: ROLY ROGERS MD (PCP) Luis Attestation Portions of this note were transcribed by Rosalind Busch. I, Dr. Booker personally performed the history, physical exam and medical decision-making; I reviewed and confirmed the accuracy of the information in the transcribed note. Signed by: Luis Hayden, 12/15/16 at 0001 copies to: ROLY ROGERS MD, Christopher W MD December 14, 2016 21:45 Savanah Busch December 14, 2016 21:51
[2016-12-14] MEDS ORDERED: Alum-Mag Hydrox-Simeth 30 mL Suspension PO ONE (22:05)
[2016-12-14 22:26] LABS: BASOPHILS % (AUTO) 1.1 % (0-3); MONOCYTES % (AUTO) 10.3 % (4-12); Mean Corpuscular Volume 89.7 fL (81-100); NEUTROPHILS % (AUTO) 40.3 % (40-74); Platelet Count 217 bil/L (150-400)
[2016-12-15] MEDS ORDERED: FAMO20T PO (00:09)
[2016-12-15 00:30] VITALS: BP 109/71; PULSE 88; RESP 16; O2SAT 99
== END 2016-12-15 00:30 | disposition home or self-care (01) ==
LOC: SED 21:06
DX: K20.9 Esophagitis, unspecified (principal)

== ENCOUNTER 2016-12-15 16:36 | Emergency (ER) | payer MEDICARE, MEDICAID ==
[~2016-12-15] VITALS: Ht 160 cm; Wt 81.0 kg
[~2016-12-15 16:36] MED LIST changes: +FAMO20T PO
[2016-12-15 16:44] VITALS: BP 134/77; PULSE 91; RESP 18; O2SAT 94
== END 2016-12-15 17:12 | disposition left against medical advice (07) ==
LOC: SED 16:36
DX: S09.90XA Unspecified injury of head, initial encounter (principal); W22.8XXA Striking against or struck by other objects, initial encounter; Y93.89 Activity, other specified; Y92.89 Other specified places as the place of occurrence of the external cause; Y99.8 Other external cause status; Z53.1 Procedure and treatment not carried out because of patient's decision for reasons of belief and group pressure

== ENCOUNTER 2016-12-24 13:31 | Emergency (ER) | payer MEDICARE, MEDICAID ==
[~2016-12-24] VITALS: Ht 160 cm; Wt 80.5 kg
[2016-12-24 13:42] VITALS: BP 142/82; PULSE 67; RESP 18; O2SAT 97
--- NOTE | 2016-12-24 14:47 | ED.REPORT ---
HPI-Trauma Multiple Date of Service December 24, 2016 ED Provider: Justin Dowling MD The patient is a 66 year old female with no pertinent medical history, who was sent to the emergency department by her regular doctor for a head CT. The patient hit her head 1 week ago with the hatchback door of her car. Someone was helping her load hay bails and accidentally shut the door on her head. She did not lose consciousness. She did not immediately feel confused or nauseous. She drove herself to the hospital when she became foggy and started hyperventilating. She was able to park at urgent care and but states she needed to hold onto the thomason to walk. When she got to urgent care she was wheeled to the emergency room. She waited in the waiting room but felt like the wait was too long so she left. She was seen the next day by her regular doctor. At that time her doctor did not see anything to order a head CT scan. Since the injury she has experienced a diffuse constant headache, spacial awareness issues, neck pain, lower back pain, nausea, vomiting, disorganization, and forgetfulness. Her doctor was unable to see her today so sent her to the emergency department. She does not take any blood thinners. Nursing Notes Stated Complaint: HEAD INJURY Chief Complaint: Head, Face, Neck Trauma Nursing Notes Reviewed: Yes Allergies: Coded Allergies: mercury (elemental) (Verified Allergy, Severe, removes skin, 11/25/16) No Active Prescriptions or Reported Meds General Time Seen by Provider: 14:49 Chief Complaint Head pain/injury Hx Obtained From: Patient, Spouse Arrived By: Walk-in Onset Occurred: 1 week ago Symptom Duration: Since onset Progression Since Onset: Constant, Gradually worsening Location: : Back: Head: Neck Quality: Painful Severity: Current: Moderate Severity: Maximum: Moderate Recent Healthcare: No recent hospitalization Similar Sx Previous: No Past Medical History Past Medical History Healthy Past Surgical History Perforated appendicitis with abscess Family History Noncontributory Smoking History Never Smoker Social History Alcohol Use: Denies alcohol use Other Social History: Good social support, Local resident Ambulatory Status Independent Review of Systems Review of Systems Note: +disorganization, forgetful GI: Reports: Nausea, Vomiting Musculoskeletal: Reports: Back pain (lower), Neck pain Neurologic: Reports: Confusion, Headache, Vision change (spacial awareness issues) Complete sys rev & neg: except as marked. Physical Exam Initial Vital Signs Vital Signs (First) Date Time Temp Pulse Resp B/P Pulse Ox O2 Delivery O2 Flow Rate FiO2 12/24/16 13:42 36.7 67 18 142/82 97 Room Air Initial VS: Reviewed ENT: Mucous membranes moist, Conjunctiva normal, No scleral icterus Lymphatic: No lymphadenopathy Extremities: Vascular intact, Neuro intact, No swelling, No tenderness Skin: Warm, Dry, No cyanosis Psychiatric: Mood/affect normal, Behavior normal, Normal thought content General/Constitutional: Awake, Alert, No acute distress, Cooperative Head / Eyes: Atraumatic, Normocephalic, PERRL, EOMI, No nystagmus Pupils are 3 mm and reactive bilaterally. Neck: Atraumatic, Supple, Full range of motion, No swelling, No midline vertebral tend, No masses, No crepitus, No JVD, No tracheal deviation No stepoffs. Some paraspinal cervical tenderness. Respiratory / Chest: Atraumatic, Breath sounds NL, Breath sounds = bilat, No respiratory distress, No rales, No rhonchi, No wheezing, No stridor, No chest tenderness, No chest wall deformity, No crepitus Cardiovascular: Heart rate NL, Regular rhythm, Heart sounds NL, No murmurs, No rubs, Cap refill not delayed, Peripheral circulation NL Abdomen: Atraumatic, Soft, Non-tender, McBurney's non-tender, No guarding, No rebound, BS normoactive, No distention, No hernia, No palpable mass, No pulsatile mass Neurologic: Oriented X3, Speech NL, No motor deficits, No sensory deficits, CN II - XII intact, Cerebellar NL, Memory NL No pronator drift. Strength is equal bilaterally. No dysmetria. Lower Extremity / Pelvis / MS: No swelling, Non-tender, Neurologic intact, Vascular intact, No edema No calf swelling or tenderness. Interpretation & Diagnostics BRAIN MRI IMPRESSION: Hyperdense lesion within the posterior right thalamic lobe on CT scan demonstrates MR characteristics suspicious for 7 mm early subacute intracranial hemorrhage of uncertain etiology. As such, recommend short term followup noncontrast head CT in 12-24 hours to reassess size. Dictated by: Roc Lowe M.D. on 12/24/2016 at 17:04 BRAIN MRI WITH CONTRAST IMPRESSION: No suspicious enhancing lesions associated with the previously noted 7 mm early subacute hemorrhage within the posterior right thalamic lobe. Dictated by: Roc Lowe M.D. on 12/24/2016 at 20:29 Lab Results Interpretation Result Diagram: 12/24/16 1554 12/24/16 1554 Test 12/24/16 15:54 12/24/16 15:55 White Blood Count 4.7th/mm3 (3.8-10.1) Red Blood Count 4.48mil/mm3 (3.90-5.20) Hemoglobin 13.1g/dL (12.0-15.6) Hematocrit 39.5% (35.0-46.0) Mean Corpuscular Volume 88.2fL (81-100) Mean Corpuscular Hemoglobin 29.2pg (27.0-35.0) Mean Corpuscular Hemoglobin Concent 33.2% (32.0-37.0) Red Cell Distribution Width 12.8% (12.3-15.4) Platelet Count 159bil/L (150-400) Neutrophils (%) (Auto) 45.2% (40-74) Lymphocytes (%) (Auto) 42.1% (14-46) Monocytes (%) (Auto) 10.0% (4-12) Eosinophils (%) (Auto) 2.1% (0-5) Basophils (%) (Auto) 0.4% (0-3) Prothrombin Time 9.6sec (8.1-12.5) Prothromb Time International Ratio 0.90ratio Activated Partial Thromboplast Time 25.0sec (22.8-33.0) Sodium Level 142mEq/L (134-144) Potassium Level 4.1mEq/L (3.5-5.2) Chloride Level 105mEq/L (97-108) Carbon Dioxide Level 22mmol/L (18-29) Blood Urea Nitrogen 15mg/dL (8-27) Creatinine 0.59mg/dL (0.57-1.00) Estimat Glomerular Filtration Rate 146mL/min (>59) Glucose Level 83mg/dL (60-99) Calcium Level 9.2mg/dL (8.5-10.1) Total Bilirubin 0.3mg/dL (0.0-1.2) Aspartate Amino Transf (AST/SGOT) 19U/L (0-50) Alanine Aminotransferase (ALT/SGPT) 13U/L (0-32) Alkaline Phosphatase 80U/L (25-165) Total Protein 6.8g/dL (6.4-8.4) Albumin 3.8g/dL (3.4-5.0) Hold Bermeo Top Tube Received (Received) CT Head Interpretation IMPRESSION: 1. Small hyperdense ovoid lesion in the posterior right thalamus. Given the history of trauma, a small focus of hemorrhage cannot be excluded although the location is atypical. The differential would include a hypervascular lesion such as a cavernous malformation. Recommend a short-term followup CT in 6 hours to evaluate for stability and subsequent followup MRI for further evaluation if the lesion in the absence of change. Findings discussed about the long straight on 12/24/16 at 2:40 PM PDT. Dictated by: Ji Mclaughlin M.D. on 12/24/2016 at 13:36 Study: Head CT no contrast Interpretation / Wet Read by: Interpret - Radiologist Re-Eval/Medical Decision Med Decision/Clinical Course In summary, the patient is a generally healthy 66-year-old female, not on any blood thinners, who presents to the emergency department with extremely vague post concussive like symptoms after being struck in the head with a car door about one week ago. Upon arrival she is afebrile, hemodynamically stable with completely normal neurologic examination. LABS: CBC unremarkable, CMP unremarkable, coags normal. Head CT 1. Small hyperdense ovoid lesion in the posterior right thalamus. Given the history of trauma, a small focus of hemorrhage cannot be excluded although the location is atypical. The differential would include a hypervascular lesion such as a cavernous malformation. Recommend a short-term followup CT in 6 hours to evaluate for stability and subsequent followup MRI for further evaluation if the lesion in the absence of change. Discussed the above findings with attending radiologist, given the equivocal findings we opted to proceed with a noncontrast MRI of the brain. Brain MRI Hyperdense lesion within the posterior right thalamic lobe on CT scan demonstrates MR characteristics suspicious for 7 mm early subacute intracranial hemorrhage of uncertain etiology. As such, recommend short term followup noncontrast head CT in 12-24 hours to reassess size. Findings as above were discussed with the attending neurosurgeon at [facility]. Images of above CT scan and MRI were pushed and images were reviewed. They have recommended T1 contrast for an MRI to rule out any underlying mass lesion. They feel that the patient does not require transfer to [facility], does not require neurosurgical evaluation and does not require admission. Brain MRI w/ contrast No suspicious enhancing lesions associated with the previously noted 7 mm early subacute hemorrhage within the posterior right thalamic lobe. Patient remained without any objective abnormal neurologic findings, speaking normally, in no apparent distress. I opted to proceed with admission to the hospital for serial CT scans in order to definitively rule out that there is any progressive bleeding although neurosurgery at [facility] did not feel that this was necessary. Patient was discussed with admitting hospitalist accepted however in the meantime patient decided that she did not want to be admitted to the hospital as she would be" observation status" and was concerned about filling. I discussed with her the risks of progressive bleeding and my recommendation that the safest course of action would be to observe her overnight. Given that she refused. I advised her to return in [address] hours for repeat head CT as this was the recommendation of our radiologists. Prior to discharge follow-up and return precautions were reviewed in detail with the patient who verbalized understanding and agreement with the plan. The patient was discharged in stable condition. Postconcussive precautions advised. Source of Hx: Old records Re-Evaluation/Progress #1: Time of Eval: 15:16 Re-Evaluation/Progress Note: Discussed plan for repeat CT at 1930. Re-Evaluation/Progress #2: Time of Eval: 15:35 Re-Evaluation/Progress Note: Discussed plan for MRI instead of repeat CT. Re-Evaluation/Progress #3: Time of Eval: 18:11 Re-Evaluation/Progress Note: Discussed plan for transfer to [facility]. All questions were addressed. Re-Evaluation/Progress #4: Time of Eval: 19:31 Re-Evaluation/Progress Note: Discussed plan for admission to [facility] instead of [facility]. Re-Evaluation/Progress #5: Time of Eval: 20:43 Re-Evaluation/Progress Note: Rechecked the patient. Discussed results, diagnosis, and option for admission or discharge. The patient would like to be discharged home and agrees to return here or see her regular doctor tomorrow. All questions were addressed. Consultation #1: Call Returned at: 15:30 Note: Discussed imaging options with the radiologist. He recommends ordering an MRI. Consultation #2: Requested Call at: 18:00 Call Returned at: 18:20 Note: Paged [facility] transfer [place]. They will have the neurosurgeon look at the images and call back. Consultation #3: Call Returned at: 19:15 Note: Spoke with the Dr. Loear from [facility]. He recommends a contrast MRI to rule out a mass, lesion or tumor. If that is negative, he would not recommend admission, transfer to [facility] or followup imaging. Consultation #4: Referral / Consult Name: Landry Felder MD Consulted With: Hospitalist Call Returned at: 19:41 [employer] Supervisor: Will see patient, Agrees with eval, Agrees with plan, Accepts admit Note: He will admit the patient after the MRI with contrast is resulted. Consultation #5: Referral / Consult Name: Landry Felder MD Consulted With: Hospitalist Call Returned at: 20:49 Note: Discussed plan to discharge the patient. Counseled Regarding: Diagnosis, Lab results, Need for follow-up, When/why to return to ED Discharge & Departure Impression: Primary Impression: ICH (intracerebral hemorrhage) Intracerebral hemorrhage etiology: traumatic Encounter type: initial encounter Laterality: right Loss of consciousness presence/duration: without LOC Qualified Code: S06.340A - Traumatic hemorrhage of right cerebrum without loss of consciousness, initial encounter Additional Impressions: Head trauma Encounter type: initial encounter Qualified Code: S09.90XA - Unspecified injury of head, initial encounter Postconcussive syndrome Disposition: Home Discharge Condition All VS Reviewed: Yes Condition: Stable Additional Instructions: Thank you for seeking care at the emergency room. We have agreed to let you go home today. You will need to return to the emergency department or followup with your regular doctor tomorrow for a repeat head CT. You should come back sometime tomorrow afternoon. If you come around 3 it will probably be less busy than later in the evening. You should return to the ED immediately if you develop increased pain, vomiting , numbness, weakness or any other concerning signs or symptoms. Thank you for letting us partake in your care today. Referrals: ROLY ROGERS MD (PCP) Crit Care Except Billable Proc Time Spent: 105-134 minutes Services Performed: Patient management by me, Time spent at bedside, Reviewing test results, Reviewing imaging, Discussing patient care, Documentation in record, Time with fam/surrogate Scribe Attestation Portions of this note were transcribed by Vicenta Toussaint. I, Dr. Dowling personally performed the history, physical exam and medical decision-making; I reviewed and confirmed the accuracy of the information in the transcribed note. Signed by: Luis Lopez 12/24/2016 at 2100. copies to: ROLY ROGERS MD, Beck O MD December 24, 2016 14:47 Vicenta Toussaint December 24, 2016 14:51
--- NOTE | 2016-12-24 14:48 | DRSVH ---
PROCEDURE: CT BRAIN WITHOUT CONTRAST ([id number]) INDICATIONS: HEAD INJURY 1 WEEK AGO; INCREASING S/S TECHNIQUE: Noncontrast 4.5 mm thick angled axial sections acquired from the foramen magnum to the vertex, with c oronal reformats. COMPARISON: None. FINDINGS: Image quality: Excellent. CSF spaces: Basal cisterns are patent. No extra-axial fluid collections. There is mild cerebral vo lume loss with prominence of the ventricles and sulci. Brain: There is a small hyperdense ovoid lesion with indistinct margins in the posterior right thalam us measuring up to approximately 9 mm. Elsewhere, no other evidence of intracranial hemorrhage or ma ss effect. Ibarra-white matter interface is preserved. Skull and face: Calvarium and visualized facial bones are intact, without suspicious lesions. Sinuses: Visualized sinuses and mastoids are clear. IMPRESSION: 1. Small hyperdense ovoid lesion in the posterior right thalamus. Given the history of trauma, a sm all focus of hemorrhage cannot be excluded although the location is atypical. The differential would include a hypervascular lesion such as a cavernous malformation. Recommend a short-term followup CT in 6 hours to evaluate for stability and subsequent followup MRI for further evaluation if the lesio n in the absence of change. Findings discussed about the long straight on 12/24/16 at 2:40 PM PDT. Dictated by: Ji Mclaughlin M.D. on 12/24/2016 at 13:36 Approved by: Ji Mclaughlin M.D. on 12/24/2016 at 13:47
[2016-12-24] MEDS ORDERED: 0.9% Sodium Chloride 1,000 ML IV ONE (15:21)
[2016-12-24] MEDS ORDERED: Ondansetron 2 mg/mL 2 mL Inj IVPUSH PRN ×2 (15:25→19:35)
[2016-12-24 15:49] VITALS: BP 131/80; PULSE 68; RESP 10; O2SAT 98
[2016-12-24 15:59] LABS: BASOPHILS % (AUTO) 0.4 % (0-3); EOSINOPHILS % (AUTO) 2.1 % (0-5); Mean Corpuscular Hemoglobin 29.2 pg (27.0-35.0); Mean Corpuscular Volume 88.2 fL (81-100); NEUTROPHILS % (AUTO) 45.2 % (40-74); Platelet Count 159 bil/L (150-400)
[2016-12-24 16:17] LABS: INR 0.9 ratio
--- NOTE | 2016-12-24 17:13 | DRSVH ---
PROCEDURE: MRI BRAIN WITHOUT CONTRAST ([id number]) INDICATIONS: 66 year-old female with possible small hemorrhage in the posterior right thalamic lobe o n recent head CT. TECHNIQUE: Noncontrast axial T1 spin echo, axial T2 fast spin echo, sagittal and axial FLAIR, coronal T2 fast sp in echo, axial gradient echo, axial diffusion and ADC through the brain. COMPARISON: [facility], CT, CT BRAIN WO CON, 12/24/2016, 14:21. FINDINGS: Image quality: Excellent. CSF Spaces: Basal cisterns are patent. No extra-axial fluid collections. Ventricles are normal in size and shape. Brain: Hyperdense lesion on CT scan (58 Hounsfield units), corresponds with a 7 mm T1 hyperintense le sanjana within the posterior right thalamic lobe on MRI, and demonstrating blooming artifact on suscepti bility weighted images. No associated mass effect. Ibarra/white matter interface is normal. Brainstem appears normal. Diffusion-weighted images demonstrate no acute ischemic insult. No chronic ischemi c insults. Normal intravascular flow voids are present. Skull and face: Calvarium has normal marrow signal. Orbits appear normal. Sinuses: Sinuses and mastoids are clear. IMPRESSION: Hyperdense lesion within the posterior right thalamic lobe on CT scan demonstrates MR phoebe racteristics suspicious for 7 mm early subacute intracranial hemorrhage of uncertain etiology. As suc h, recommend short term followup noncontrast head CT in 12-24 hours to reassess size. Dictated by: Roc Lowe M.D. on 12/24/2016 at 17:04 Approved by: Roc Lowe M.D. on 12/24/2016 at 17:11
[2016-12-24 17:15] VITALS: BP 114/66; PULSE 62; RESP 18; O2SAT 98
[2016-12-24 19:26] VITALS: BP 130/66; PULSE 71; RESP 20; O2SAT 97
[2016-12-24] MEDS ORDERED: Alum-Mag Hydrox-Simeth 30 mL Suspension PO PRN (19:35)
--- NOTE | 2016-12-24 20:35 | DRSVH ---
PROCEDURE: MRI BRAIN WITH CONTRAST INDICATIONS: 66 year-old female with early subacute hemorrhage within the posterior right thalamic lo be. Evaluate for underlying mass lesion. COMPARISON: [facility], MR, MR BRAIN WO CON, 12/24/2016, 16:36. [facility], CT, CT BRAIN WO CON, 12/24/2016, 14:21. TECHNIQUE: Pre-contrast T1 spin-echo with fat saturation; post contrast axial VIBE with coronal refor mats through the brain. FINDINGS: In the posterior right thalamic lobe, no abnormal parenchymal enhancement is noted in; a s erpiginous enhancing vein courses through the region of abnormal precontrast signal. Elsewhere within the brain parenchyma, no abnormal enhancement. IMPRESSION: No suspicious enhancing lesions associated with the previously noted 7 mm early subacute hemorrhage within the posterior right thalamic lobe. Dictated by: Roc Lowe M.D. on 12/24/2016 at 20:29 Approved by: Roc Lowe M.D. on 12/24/2016 at 20:33
[2016-12-24 20:51] VITALS: PULSE 78; RESP 18
== END 2016-12-24 20:52 | disposition home or self-care (01) ==
LOC: SED 13:31
DX: S06.340A Traumatic hemorrhage of right cerebrum without loss of consciousness, initial encounter (principal); S09.90XA Unspecified injury of head, initial encounter; F07.81 Postconcussional syndrome; W22.8XXA Striking against or struck by other objects, initial encounter; Y93.89 Activity, other specified; Y92.810 Car as the place of occurrence of the external cause; Y99.8 Other external cause status; Z88.8 Allergy status to other drugs, medicaments and biological substances
CPT/HCPCS: 36415; 70450; 70551; 70552; 80053; 85025; 85610; 85730; 86850; 96360; 99291; 99292; A9585; J7030

== ENCOUNTER 2016-12-25 15:14 | Emergency (ER) | payer MEDICARE, MEDICAID ==
[~2016-12-25] VITALS: Ht 160 cm; Wt 80.5 kg
[2016-12-25 15:23] VITALS: BP 141/74; PULSE 82; RESP 16; O2SAT 97
--- NOTE | 2016-12-25 15:38 | ED.REPORT ---
HPI-General Illness Date of Service December 25, 2016 ED Provider: Ashley Hernandez MD The patient is an otherwise healthy 66 year old female who was seen in the emergency department yesterday for multiple complaints that began after she obtained a head injury. Her complaints included: a diffuse constant headache, spacial awareness issues, neck pain, lower back pain, nausea, vomiting, disorganization, and forgetfulness. She had an extensive workup yesterday that included: head CT, brain MRI, and brain MRI with contrast. She was not able to get into her PCP today so she was directed to return to the emergency department for a repeat head CT. She is still experiencing an occasional headache but overall feels much better. Nursing Notes Stated Complaint: FOLLOW-UP CT Chief Complaint: General Complaint Nursing Notes Reviewed: Yes Allergies: Coded Allergies: mercury (elemental) (Verified Allergy, Severe, removes skin, 12/25/16) No Active Prescriptions or Reported Meds General Time Seen by MD: 15:35 Chief Complaint Other Returns to the emergency department for a followup head CT. Hx Obtained From: Patient Arrived By: Walk-in Sudden in Onset?: No Onset Occurred: More than a week ago... Symptom Duration: Since onset Location: : Head Quality: Painful Severity: Current: Mild Severity: Maximum: Moderate Recent Healthcare: Recent doctor visit, Prior workup Similar Sx Previous: No Past Medical History Past Medical History Healthy Past Surgical History Perforated appendicitis with abscess Family History Noncontributory Smoking History Never Smoker Social History Alcohol Use: Denies alcohol use Other Social History: Good social support, Local resident Ambulatory Status Independent Review of Systems Full Review of Systems Neurologic: Reports: Headache Complete sys rev & neg: except as marked. Physical Exam Vital Signs Vital Signs Date Time Temp Pulse Resp B/P Pulse Ox O2 Delivery O2 Flow Rate FiO2 12/25/16 17:21 67 16 109/68 99 Room Air 12/25/16 15:23 36.7 82 16 141/74 97 Room Air Initial VS: Reviewed Head / Eyes: Atraumatic, Normocephalic, PERRL ENT: Mucous membranes moist, Conjunctiva normal, No scleral icterus Neck: Supple, Non-tender, Full range of motion Respiratory: Breath sounds normal, Clear to auscultation, No respiratory distress Cardiovascular: Regular rate & rhythm, Heart sounds normal, Intact distal pulses Abdomen / GI: Soft, Non-tender, No guarding, No rebound, No distention Lymphatic: No lymphadenopathy Extremities: Vascular intact, Neuro intact, No swelling, No tenderness Skin: Warm, Dry, No cyanosis Psychiatric: Mood/affect normal, Behavior normal, Normal thought content General/Constitutional: Awake, Alert, No acute distress, Cooperative Neurologic: Oriented X3, Speech NL, No motor deficits, No sensory deficits, CN II - XII intact, Cerebellar NL, Memory NL, Gait NL Normal heel to toe test. Interpretation & Diagnostics CT Head Interpretation IMPRESSION: 1. Minimal, less prominent appearance of right thalamic hyperdensity. Findings remain consistent with MRI findings of acute/subacute hemorrhage. Dictated by: Sarah Ma M.D. on 12/25/2016 at 16:43 Study: Head CT no contrast Interpretation / Wet Read by: Interpret - Radiologist Re-Eval/Medical Decision Source of Hx: Old records Time of Eval: 17:04 Re-Evaluation/Progress Note: Rechecked the patient. Discussed repeat head CT results, diagnosis, and plan for discharge. All questions were addressed. Counseled Regarding: Diagnosis, Need for follow-up, When/why to return to ED Discharge & Departure Primary Impression: Thalamic hemorrhage Disposition: Home Discharge Condition All VS Reviewed: Yes Condition: Stable Additional Instructions: Thank you for entrusting us with your care today. I am glad you are feeling better. Your head CT today looks better compared to the one taken yesterday. It is safe to take Tylenol for your headache. It is not safe to take any NSAIDs which include: aspirin, ibuprofen, and naproxen. You should followup with your regular doctor next week for re-evaluation. Seek care sooner for any new or concerning symptoms. Referrals: ROLY ROGERS MD (PCP) Scribe Attestation Portions of this note were transcribed by Vicetna Toussaint. I, Dr. Hernandez personally performed the history, physical exam and medical decision-making; I reviewed and confirmed the accuracy of the information in the transcribed note. Signed by: Luis Lopez, 12/25/2016 at 1720. copies to: ROLY ROGERS MD, Shawna L MD December 25, 2016 15:38 Vicenta Toussaint December 25, 2016 15:47
--- NOTE | 2016-12-25 16:46 | DRSVH ---
PROCEDURE: CT BRAIN WITHOUT CONTRAST ([id number]) INDICATIONS: follow-up, subdural from 12/24 TECHNIQUE: Noncontrast 4.5 mm thick angled axial sections acquired from the foramen magnum to the vertex, with c oronal reformats. COMPARISON: [facility], CT, CT BRAIN WO CON, 12/24/2016, 14:21. FINDINGS: Image quality: Excellent. CSF spaces: Basal cisterns are patent. No extra-axial fluid collections. The ventricles are symmet lety in size and shape. Brain: Minimally less prominent appearance of right thalamic hyperdensity. There is cerebral volume l oss for age, with resultant ventricular and sulcal prominence. There are periventricular and deep wh ite matter chronic small vessel ischemic changes. There is intracranial internal carotid artery athe rosclerosis. Skull and face: Calvarium and visualized facial bones appear intact, without suspicious lesions. Sinuses: Visualized sinuses and mastoids are clear. IMPRESSION: 1. Minimal, less prominent appearance of right thalamic hyperdensity. Findings remain consistent with MRI findings of acute/subacute hemorrhage. Dictated by: Sarah Ma M.D. on 12/25/2016 at 16:43 Approved by: Sarah Ma M.D. on 12/25/2016 at 16:45
[2016-12-25 17:21] VITALS: BP 109/68; PULSE 67; RESP 16; O2SAT 99
== END 2016-12-25 17:22 | disposition home or self-care (01) ==
LOC: SED 15:14
DX: I61.9 Nontraumatic intracerebral hemorrhage, unspecified (principal); S09.90XD Unspecified injury of head, subsequent encounter; Y93.89 Activity, other specified; Y92.9 Unspecified place or not applicable; Y99.8 Other external cause status; Z88.8 Allergy status to other drugs, medicaments and biological substances

== ENCOUNTER 2017-01-02 12:05 | Emergency (ER) | payer MEDICARE, MEDICAID ==
[~2017-01-02] VITALS: Ht 161.3 cm; Wt 79.1 kg
[2017-01-02 12:08] VITALS: BP 137/80; PULSE 60; RESP 17; O2SAT 99
--- NOTE | 2017-01-02 12:28 | ED.REPORT ---
HPI-General Illness Date of Service Jan 02, 2017 ED Provider: The patient is a 66 year old female with a recent intracranial hemorrhage s/p blunt head injury on 12/15/16 who presents to the ED for worsening symptoms. The patient hit her head on 12/15 with the hatchback door of her car. Someone was helping her load hay bails and accidentally shut the door on her head. She did not lose consciousness at that time. She was in the ER waiting room but the wait was too long so she left without being seen. On 12/24, she returned to the ER with a diffuse constant headache, spacial awareness issues, neck pain, lower back pain, nausea, vomiting, disorganization, and forgetfulness. She had both CT and MRI of head and was found to have a hyperdense lesion within the posterior right thalamic lobe on CT scan demonstrates MR characteristics suspicious for 7 mm early subacute intracranial hemorrhage of uncertain etiology. The next day, 12/25, she returned to the ER for repeating CT and MRI head, which showed less prominent appearance of right thalamic hyperdensity. Patient then followed up with her PCP and was told to return to the ER if her symptoms get worse. There is also a pending order to repeat the CT head and neurology referral from her PCP. Today, patient presents to the ER with worsening headache that starts in her bilateral temporal areas and wrap around her head. She also has several other complaints, including spacial awareness issues, nausea, disorganization, word- finding difficulty, and forgetfulness. All these symptoms started about 2 days ago. She repeatedly states that she is "highly intelligent" and this is not the way she normally speech although her speech was very fluent. She insists to have a CT/MRI to make sure that her pressure in her head is not due to worsening ICH. She also reports to have blurry vision, but was seen reading a book in the ER. Patient does not have any other medical issue and is not taking any medication. Nursing Notes Stated Complaint: DIZZY Chief Complaint: Neuro Symptoms/ Deficits Nursing Notes Reviewed: Yes Allergies: Coded Allergies: mercury (elemental) (Verified Allergy, Severe, removes skin, 12/25/16) No Active Prescriptions or Reported Meds General Time Seen by MD: 12:28 Chief Complaint Headache Hx Obtained From: Patient Arrived By: Walk-in Symptom Duration: 2 days Caused by: Accidental Location: : Head Quality: Pressure, Sharp, Throbbing Radiation: : Does not radiate Severity: Current: Moderate Severity: Maximum: Severe Associated with: Reports: Dizziness, Headache, Nausea, Neck pain, Off balance, Vision change, Weakness, Denies: Chest pain, Cough, Difficulty breathing, Difficulty swallowing, Fever , Loss of consciousness, Shortness of breath, Syncope, Vomiting Pertinent Negative: Pt denies other symptoms Pertinent Negative: Exacerbated by nothing, Relieved by nothing Recent Healthcare: Recent doctor visit, Recent hospitalization Similar Sx Previous: Yes Past Medical History Past Medical History Healthy. Denies any medical history. Past Surgical History Perforated appendicitis with abscess s/p appendectomy a month ago Family History Noncontributory Smoking History Never Smoker Social History Alcohol Use: Denies alcohol use Drug Use: Denies drug use Other Social History: Good social support, Local resident Ambulatory Status Independent Review of Systems Full Review of Systems Constitutional: Reports: Fatigue, Weakness - generalized, Denies: Chills, Fever Eyes: Reports: Blurred bilateral ("fuzzy" vision), Denies: Discharge bilateral, Photophobia, Redness bilateral, Visual loss bilateral Respiratory: Denies: Dyspnea on exertion, Non-productive cough, Shortness of breath, Wheezing Cardiovascular: Denies: Chest pain, Dyspnea on exertion, Edema, Orthopnea, Palpitations GI: Denies: Abdominal pain, Anorexia, Belching, Constipation, Diarrhea Female: Denies: Dysuria, Hematuria, Incontinence, Urinary frequency, Urinary urgency Musculoskeletal: Reports: Back pain, Denies: Extremity pain, Extremity swelling, Joint pain, Joint swelling, Lumbar pain Hematologic: Denies Adenopathy, Denies Bleeding, Denies Bruising Neurologic: Reports: Abnormal movement, Confusion, Dizziness, Headache, Lightheaded, Numbness, Problem walking, Vision change, Weakness, Denies: Bladder dysfunction, Bowel dysfunction, Change LOC, Focal weakness, Shaking Psychiatric: Reports: Anxiety, Denies: Confusion, Delusional, Depression, Stress, Suicidal ideation Complete sys rev & neg: except as marked. Physical Exam Vital Signs Vital Signs Date Time Temp Pulse Resp B/P Pulse Ox O2 Delivery O2 Flow Rate FiO2 01/02/17 13:02 55 16 11/76 99 Room Air 01/02/17 12:08 60 17 137/80 99 Room Air Initial VS: Reviewed Head / Eyes: Atraumatic, Normocephalic, PERRL ENT: Mucous membranes moist, Conjunctiva normal, No scleral icterus Neck: Supple, Non-tender, Full range of motion Respiratory: Breath sounds normal, Clear to auscultation, No respiratory distress Cardiovascular: Regular rate & rhythm, Heart sounds normal, Intact distal pulses Abdomen / GI: Soft, Non-tender, No guarding, No rebound, No distention Back: No CVA tenderness Lymphatic: No lymphadenopathy Extremities: Vascular intact, Neuro intact, No swelling, No tenderness Skin: Warm, Dry, No cyanosis Neurologic: Alert, Oriented, Nonfocal Psychiatric: Mood/affect normal, Behavior normal, Normal thought content General/Constitutional: Awake, Alert, No acute distress, Well appearing, Well developed, Well hydrated, Well nourished, Not toxic appearing Head / Eyes: Atraumatic, Normocephalic, PERRL, EOMI, No nystagmus, No periorbital redness, No photophobia, No scleral icterus, Cornea clear, No corneal abrasion Head is NCAT, but mild tenderness to palpation on top of the head, where the injury occured per the pation. Neck: Atraumatic, Supple, No crepitus Neck / Muscle Tenderness: Positive: Midline tenderness mid Respiratory / Chest: Atraumatic, Breath sounds NL, Breath sounds = bilat, No respiratory distress, No rales, No wheezing, No chest tenderness Cardiovascular: Heart rate NL, Regular rhythm, Heart sounds NL, No gallop, No murmurs, Pulses = bilaterally Abdomen: Atraumatic, Soft, Non-tender, No guarding, No rebound, BS normoactive , No distention, No hernia Neurologic: Oriented X3, Speech NL, No motor deficits, No sensory deficits, CN II - XII intact, Reflexes equal bilat, Cerebellar NL, Memory NL Patient complains of eye pain with moving the eyes upward and downward on the left side. Gait was noted to be normal by RN. The rest of her Neurological exam was normal. NIH-1. Psychiatric: Affect NL, Mood NL, Not suicidal Abnormal Mood/Affect: Positive: Anxious, Flight of ideas Re-Eval/Medical Decision Med Decision/Clinical Course 66 yo woman with recent history of ICH that was diagnosed on 12/24 who presents to the ER for worsening headache, diffuse constant headache, spacial awareness issues, neck pain, lower back pain, nausea, vomiting, disorganization, and forgetfulness. All of her symptoms are worse per the patient. However, her exam was benign and we did not feel a strong indication for repeating the CT head given the last one was just a few days ago and it showed improvement of the bleed. In spite of patient's several complaints, she was seen walking with a steady gait to the bathroom, reading a book in the room, fluent speech, and no focal deficits on exam. There is a strong clinical suspicion that her symptoms are secondary to post-concussive syndrome. However, patient is greatly concerned about her symptoms and insists on a head scan. I spent a long time discussing with her about the risks of over-exposure to radiation, but patient still wishes to pursue. She states that her exam was benign on the first visit and she was found to have a bleed. Therefore, she does not think the exam is a reliable tool to diagnose her condition. However, patient then received a phone call from her PCP. Apparently she has been approved for a CT in [facility] today. Therefore, she requested to be discharged so she can go to her CT appointment. She does not want any imaging at our hospital. Patient already has a referral to neurology and was discharged on stable condition. Source of Hx: Old records Counseled Regarding: Diagnosis, Lab results, Need for follow-up, When/why to return to ED Discharge & Departure Shift Change Sign-Out Patient Care Transferred: No Discussed Complaint(s): Yes Response to Therapy: Discussed Primary Impression: Headache Headache type: unspecified Headache chronicity pattern: unspecified pattern Intractability: not intractable Qualified Code: R51 - Headache Additional Impressions: ICH (intracerebral hemorrhage) Intracerebral hemorrhage etiology: traumatic Encounter type: subsequent encounter Laterality: unspecified laterality Postconcussive syndrome Disposition: Home Discharge Condition All VS Reviewed: Yes Condition: Stable Patient Instructions: Post Concussion Syndrome (ED) Additional Instructions: We spent a long time discussing about post-concussive syndrome, the indications for the head scan, as well as the risks and benefits of CT scan. Your exam was benign today and your speech does not appear impaired as you perceived. I suspect that your symptoms are secondary to post-concussive syndrome, which could lead to [id number] headache. However, because you complain of worsening symptoms, I think it is reasonable to have another scan of your head. You want to go to the [facility] to have the CT done per your PCP's order and thus request to be discharge. You should see a neurologist, which has been referred by your PCP as outpatient. If you develop the worse headache of your life, slurred speech, one-sided weakness, facial droop, dysphagia, or neck stiffness, please go to the ER immediately. Referrals: ROLY ROGERS MD (PCP) Attending Statement I saw, evaluated and discussed this pt with Dr. David Ramirez and I agree with the documentation above. copies to: ROLY ROGERS MD, Gary R DO Jan 02, 2017 12:28 David Ramirez DO Jan 02, 2017 14:07
[2017-01-02 13:02] VITALS: BP 11/76; PULSE 55; RESP 16; O2SAT 99
== END 2017-01-02 14:27 | disposition home or self-care (01) ==
LOC: SED 12:05
DX: R51 Headache (principal); I61.9 Nontraumatic intracerebral hemorrhage, unspecified; F07.81 Postconcussional syndrome